=== PATIENT | male | born 1985 | race African-American/Black ===

== ENCOUNTER 2019-04-04 22:01 | Emergency (ER) | payer OTHER ==
[~2019-04-04] VITALS: Ht 172.7 cm; Wt 72.6 kg
[~2019-04-04 22:01] MED LIST: PERCOCET PO
[2019-04-04 22:02] VITALS: BP 133/84
[2019-04-04] MEDS ORDERED: NOHOMEMEDICATIONS (22:12)
[2019-04-04] MEDS ORDERED: ONDANSETRON ODT8 MG PO (22:39)
== END 2019-04-04 22:50 | disposition home or self-care (01) ==
LOC: ER 22:01
DX: R51 Headache (principal); R11.0 Nausea

== ENCOUNTER 2019-06-14 18:09 | Emergency (ER) | payer OTHER ==
[~2019-06-14] VITALS: Ht 172.7 cm; Wt 74.8 kg
[~2019-06-14 18:09] MED LIST changes: +NOHOMEMEDICATIONS; +ONDANSETRON ODT8 MG PO
[2019-06-14 18:10] VITALS: BP 127/73
[2019-06-14] MEDS ORDERED: PROMETH-CODEIN 65 ML PO (20:45)
== END 2019-06-14 21:01 | disposition home or self-care (01) ==
LOC: ER 18:09
DX: J11.1 Influenza due to unidentified influenza virus with other respiratory manifestations (principal); F17.210 Nicotine dependence, cigarettes, uncomplicated; Z88.6 Allergy status to analgesic agent

== ENCOUNTER 2019-08-02 20:33 | Emergency (ER) | payer OTHER ==
[~2019-08-02] VITALS: Ht 172.7 cm; Wt 72.6 kg
[~2019-08-02 20:33] MED LIST changes: +PROMETH-CODEIN 65 ML PO
[2019-08-02 21:37] VITALS: BP 121/61
== END 2019-08-02 23:03 | disposition home or self-care (01) ==
LOC: ER 20:33
DX: J06.9 Acute upper respiratory infection, unspecified (principal); F17.210 Nicotine dependence, cigarettes, uncomplicated; Z88.6 Allergy status to analgesic agent

== ENCOUNTER 2020-03-13 18:52 | Emergency (ER) | payer BC ==
[~2020-03-13] VITALS: Ht 172.7 cm; Wt 72.6 kg
[2020-03-13 18:53] VITALS: BP 122/79
== END 2020-03-13 20:29 | disposition home or self-care (01) ==
LOC: ER 18:52
DX: R09.81 Nasal congestion (principal); R53.83 Other fatigue; Z20.828 Contact with and (suspected) exposure to other viral communicable diseases; F17.210 Nicotine dependence, cigarettes, uncomplicated; Z98.890 Other specified postprocedural states

== ENCOUNTER 2020-11-14 11:42 | Emergency (ER) | payer OTHER ==
[~2020-11-14] VITALS: Ht 172.7 cm; Wt 77.1 kg
[2020-11-14 11:42] VITALS: BP 119/84
== END 2020-11-14 12:57 | disposition home or self-care (01) ==
LOC: ER 11:42
DX: R09.81 Nasal congestion (principal); Z88.5 Allergy status to narcotic agent; F17.210 Nicotine dependence, cigarettes, uncomplicated; Z20.822 Contact with and (suspected) exposure to COVID-19

== ENCOUNTER 2021-01-03 06:27 | Emergency (ER) | payer OTHER ==
[2021-01-03 06:29] VITALS: BP 143/82
== END 2021-01-03 08:03 | disposition home or self-care (01) ==
LOC: ER 06:27
PROVIDERS: Emergency Medicine
DX: R50.9 Fever, unspecified (principal); Z20.822 Contact with and (suspected) exposure to COVID-19; F17.210 Nicotine dependence, cigarettes, uncomplicated; Z98.890 Other specified postprocedural states; Z88.5 Allergy status to narcotic agent

== ENCOUNTER 2021-05-06 20:31 | Emergency (ER) | payer OTHER ==
[~2021-05-06] VITALS: Ht 172.7 cm; Wt 74.8 kg
[2021-05-06 20:34] VITALS: BP 124/71
== END 2021-05-06 21:26 | disposition home or self-care (01) ==
LOC: ER 20:31
DX: U07.1 COVID-19 (principal); F17.210 Nicotine dependence, cigarettes, uncomplicated; F12.90 Cannabis use, unspecified, uncomplicated; Z98.890 Other specified postprocedural states; Z88.5 Allergy status to narcotic agent